=== PATIENT | male | born 1975 | race Caucasian/White ===

== ENCOUNTER 2017-02-02 16:04 | Emergency (ER) | payer OTHER ==
[2017-02-02 16:14] VITALS: RESP 16; TEMP 97.9
--- NOTE | 2017-02-02 16:20 | EDPHY ---
H & P Stated Complaint: 1/2 hr [employer] boat [employer] umbilical pain"hernia", denies n/v/d or fever Time Seen by Provider: 02/02/17 16:16 HPI/ROS: CHIEF COMPLAINT: Hernia HISTORY OF PRESENT ILLNESS: The patient is a 41-year-old man with an umbilical hernia. He states that usually when it comes out he is able to easily reduce it. Today it is been out for about 45 minutes and is becoming painful. No vomiting. No diaphoresis. No other complaints or injuries. REVIEW OF SYSTEMS: Constitutional: denies: chills, fever, recent illness, recent injury EENTM: denies: blurred vision, double vision, nose congestion Respiratory: denies: cough, shortness of breath Cardiac: denies: chest pain, irregular heart rate, lightheadedness, palpitations Gastrointestinal/Abdominal: See HPI Genitourinary: denies: dysuria, frequency, hematuria, pain Musculoskeletal: denies: joint pain, muscle pain Skin: denies: lesions, rash, jaundice, bruising Neurological: denies: headache, numbness, paresthesia, tingling, dizziness, weakness Hematologic/Lymphatic: denies: blood clots, easy bleeding, easy bruising Immunologic/allergic: denies: HIV/AIDS, transplant EXAM: GENERAL: Well-appearing, well-nourished and in no acute distress. HEAD: Atraumatic, normocephalic. EYES: Pupils equal round and reactive to light, extraocular movements intact, sclera anicteric, conjunctiva are normal. ENT: TMs normal, nares patent, oropharynx clear without exudates. Moist mucous membranes. NECK: Normal range of motion, supple without lymphadenopathy or JVD. LUNGS: Breath sounds clear to auscultation bilaterally and equal. No wheezes rales or rhonchi. HEART: Regular rate and rhythm without murmurs, rubs or gallops. ABDOMEN: Small umbilical hernia visible. Patient would not let me palpate because of pain. BACK: No CVA tenderness, no spinal tenderness, step-offs or deformities EXTREMITIES: Normal range of motion, no pitting or edema. No clubbing or cyanosis. NEUROLOGICAL: Cranial nerves II through XII grossly intact. Normal speech, normal gait. 5/5 strength, normal movement in all extremities, normal sensation PSYCH: Normal mood, normal affect. SKIN: Warm, dry, normal turgor, no visible rashes or lesions. Source: Patient Exam Limitations: No limitations - Medical/Surgical History Hx Asthma: No Hx Chronic Respiratory Disease: No Hx Diabetes: No Hx Cardiac Disease: No Hx Renal Disease: No Hx Cirrhosis: No Hx Alcoholism: No Hx HIV/AIDS: No Hx Splenectomy or Spleen Trauma: No Other PMH: MEd hx-none. Surg-left elbow - Family History Significant Family History: No pertinent family hx - Social History Smoking Status: Never smoked Alcohol Use: Sober Drug Use: None Constitutional: Initial Vital Signs Temperature (C) 36.6 C 02/02/17 16:10 Heart Rate 56 L 02/02/17 16:10 Respiratory Rate 16 02/02/17 16:10 Blood Pressure 133/76 H 02/02/17 16:10 O2 Sat (%) 98 02/02/17 16:10 O2 Delivery Mode Room Air Allergies/Adverse Reactions: No Known Allergies Allergy (Verified 02/02/17 16:09) Home Medications: Medication Instructions Recorded NO HOME MEDICATIONS 05/18/10 Medical Decision Making ED Course/Re-evaluation: I placed the patient in Trendelenburg and placed an ice pack. He does not yet feel ready for me to attempt to palpate a reduce it. 4:30 p.m. I again attempted reduction however the patient would hardly allow palpation. We will place an IV and give Dilaudid and reassess. 5:00 p.m. I return to the room and the patient's hernia had reduced spontaneously while he was in Trendelenburg with ice. He feels completely better. We discussed follow-up with surgery elective repair. I encouraged him to have the repair. We discussed indications for returning. We discussed treatment home. Differential Diagnosis: Partial list of the Differential diagnosis considered include but were not limited to; umbilical hernia, strangulation, ischemia and although unlikely based on the history and physical exam, I also considered obstruction, trauma, infection. I discussed these differential diagnoses and the plan with the patient as well as the usual and expected course. The patient understands that the diagnosis is provisional and that in medicine we are not always correct and that further workup is often warranted. Usual and customary warnings were given. All of the patient's questions were answered. The patient was instructed to return to the emergency department should the symptoms at all worsen or return, otherwise to followup with the physician as we discussed. Departure - Departure Disposition: Home, Routine, Self-Care Clinical Impression: Umbilical hernia, congenital Condition: Fair Instructions: Umbilical Hernia (ED) Referrals: NONE *PRIMARY CARE P,. [Primary Care Provider] - As per Instructions Ab Tejeda MD [Medical Doctor] - As per Instructions
[2017-02-02] MEDS ORDERED: HYDROmorphONE/DILAUDID 1 MG/ML INJ IVP ONE (16:32)
[2017-02-02 17:00] VITALS: BP 128/72; PULSE 63; O2SAT 97
== END 2017-02-02 17:13 | disposition home or self-care (01) ==
LOC: CED 16:04
DX: K42.0 Umbilical hernia with obstruction, without gangrene (principal)
CPT/HCPCS: 96374; J1170